=== PATIENT | female | born 1985 | race Two or more races ===

== ENCOUNTER 2016-06-12 18:15 | Emergency (ER) | payer OTHER ==
[2016-06-12 18:18] VITALS: BP 126/34; PULSE 97; TEMP 99.7; BMI 35.7
--- NOTE | 2016-06-12 18:49 | PDOC ---
History of Present Illness - General Chief Complaint: Back Pain Stated Complaint: LOWER BACK PAIN Time Seen by Provider: 06/12/16 18:30 History Source: Patient Exam Limitations: No Limitations - History of Present Illness Initial Comments: CHIEF COMPLAINT: 31 y/o overweight female with no significant PMH c/o low back pain today. HISTORY OF PRESENT ILLNESS: The patient states she was bending down trying to put some shoes on when she felt a pull in her left lower back. She states she' s had pain in that area and pain with movement ever since. She denies fall, trauma to back, saddle anesthesia, radiation of pain, numbness/tingling in LEs. The patient did not take anything for the pain. Vital signs on arrival are within normal limits. REVIEW OF SYSTEMS: GENERAL/CONSTITUTIONAL: fever/chills. No weakness. No weight change. HEAD, EYES, EARS, NOSE AND THROAT: No change in vision. No ear pain or discharge. No sore throat. CARDIOVASCULAR: No chest pain or shortness of breath. RESPIRATORY: No cough, wheezing, or hemoptysis. GASTROINTESTINAL: No abd pain, nausea, vomiting, diarrhea. GENITOURINARY: No dysuria, frequency, or change in urination. MUSCULOSKELETAL: No joint or muscle swelling or pain. No neck pain. +low back pain. SKIN: No rash or easy bruising. NEUROLOGIC: No headache, vertigo, loss of consciousness, or loss of sensation. PHYSICAL EXAM: GENERAL: The patient is awake, alert, and fully oriented, in no acute distress. She is overweight, ambulatory with pain. HEAD: Normal with no signs of trauma. ENT: Pupils equal, round and reactive to light, extraocular movements intact, sclera anicteric, conjunctiva clear. Neck supple. BACK: No midline lumbar spine TTP or step offs. TTP of left lumbar paravertebral muscles. Pain with flexion of lumbar spine. EXTREMITIES: Normal range of motion, no edema. Equal straight leg raise b/l. NEUROLOGICAL: Normal speech, normal gait. CN II-XII grossly intact. No saddle anesthesia. PSYCH: Normal mood, normal affect. SKIN: Warm, dry, normal turgor, no rashes or lesions noted. Past History - Past Medical History Allergies/Adverse Reactions: Allergies Allergy/AdvReac Type Severity Reaction Status Date / Time No Known Allergies Allergy Verified 06/12/16 18:18 Other medical history: NONE - Psycho/Social/Smoking Cessation Hx Suicidal Ideation: No Smoking History: Never smoked Hx Alcohol Use: No Drug/Substance Use Hx: No Substance Use Type: None *Physical Exam - Vital Signs Last Vital Signs Temp Pulse Resp BP Pulse Ox 99.7 F H 97 H 20 126/34 100 06/12/16 18:16 06/12/16 18:16 06/12/16 18:16 06/12/16 18:16 06/12/16 18:16 Medical Decision Making - Medical Decision Making A/P: 31 y/o female with low back strain. Plan is as follows: 1. hcg 2. IM Toradol The patient does not want to wait for the hcg. She states she has motrin at home. She will be discharged to home with instructions to take motrin every 6 hours for pain, apply heating pad to the affected area, avoid heavy lifting, and f/u with her PCP on Tuesday for possible PT referral. The patient verbalizes understanding of all instructions, has no further questions and is awaiting discharge. *DC/Admit/Observation/Transfer Diagnosis at time of Disposition: Low back strain Qualifiers: Encounter type: initial encounter Qualified Code(s): S39.012A - Strain of muscle, fascia and tendon of lower back, initial encounter - Discharge Dispostion Disposition: HOME Condition at time of disposition: Good - Referrals Referrals: Sivakumar Salinas MD [Primary Care Provider] - Call tomorrow - Patient Instructions Printed Discharge Instructions: DI for Low Back Pain, How To Perform RICE (Rest , Ice, Compress, Elevate) Additional Instructions: Discharge Instructions: -Take 600mg of Motrin every 6 hours for pain with food -Massage the affected area -Apply heating pad to the affected area -Stretch your back multiple times per day -No heavy lifting -Follow up with your doctor on Tuesday for possible physical therapy referral
== END 2016-06-12 19:23 | disposition home or self-care (01) ==
LOC: JERFT 18:15
DX: S39.012A Strain of muscle, fascia and tendon of lower back, initial encounter (principal); X50.0XXA Overexertion from strenuous movement or load, initial encounter; Y93.89 Activity, other specified; Y92.038 Other place in apartment as the place of occurrence of the external cause
CPT/HCPCS: 84703; 99281-25

== ENCOUNTER 2018-11-22 14:03 | Emergency (ER) | payer OTHER ==
--- NOTE | 2018-11-22 14:11 | PDOC ---
Rapid Medical Evaluation Time Seen by Provider: 11/22/18 14:09 Medical Evaluation: Allergies Allergy/AdvReac Type Severity Reaction Status Date / Time No Known Allergies Allergy Verified 06/12/16 18:18 11/22/18 14:09 HPI: Abdominal pain x 3 days + preg PE: No gross deficits ORDERS: US, B hcg ,labs Discharge Disposition - Diagnosis Threatened - Referrals - Patient Instructions - Post Discharge Activity
[2018-11-22 14:13] VITALS: BP 125/83; PULSE 109; TEMP 98; BMI 37.0
--- NOTE | 2018-11-22 15:20 | PDOC ---
*Physical Exam - Vital Signs Last Vital Signs Temp Pulse Resp BP Pulse Ox 98 F 109 H 16 125/83 100 11/22/18 14:10 11/22/18 14:10 11/22/18 14:10 11/22/18 14:10 11/22/18 14:10 ED Treatment Course - LABORATORY CBC & Chemistry Diagram: 11/22/18 15:30 11/22/18 15:30 Medical Decision Making - Medical Decision Making 11/22/18 17:02 33 yo F presenting with a complaint of vaginal bleeding US demonstrates IUP 16 weeks 1 day, HR 143 Pt seen by Midlevel Provider under my direct supervision Ancillary studies reviewed I agree with plan as outlined by Midlevel Provider 11/22/18 17:02 Clinical Impression: threatened AB, initial presentation 11/22/18 17:03 *DC/Admit/Observation/Transfer Diagnosis at time of Disposition: Threatened - Referrals - Patient Instructions - Post Discharge Activity
[2018-11-22 15:38] LABS: BASO % 0.4 % (0-2.0); EOS % 0.9 % (0-4.5); HEMATOCRIT 39.4 % (32.4-45.2); HEMOGLOBIN 13.1 GM/dL (10.7-15.3); LYMPH % 15.3 % (8-40); MCH 28.8 pg (25.7-33.7); MCHC 33.2 g/dl (32.0-36.0); MEAN CELL VOLUME 86.8 fl (80-96); MONO % 7.9 % (3.8-10.2); NEUT % 75.5 % (42.8-82.8); PLATELET COUNT 279 K/MM3 (134-434); RBC 4.54 M/mm3 (3.60-5.2); WHITE BLOOD COUNT 12.6 K/mm3 (4.0-10.0)
[2018-11-22 15:44] LABS: INR 0.98 (0.83-1.09); PROTHROMBIN TIME (PATIENT) 11.6 SEC (9.7-13.0)
[2018-11-22 16:10] LABS: ALBUMIN 3.2 g/dl (3.4-5.0); BILIRUBIN,TOTAL 0.2 mg/dL (0.2-1); BLOOD UREA NITROGEN 6.9 mg/dL (7-18); CALCIUM 9.2 mg/dL (8.5-10.1); CREATININE 0.5 mg/dL (0.55-1.3); POTASSIUM 3.6 mmol/L (3.5-5.1); TOT PROT 7.3 g/dl (6.4-8.2)
[2018-11-22 16:56] LABS: HCG,QUALITATIVE URINE Positive; URINE APPEARANCE CLEAR; URINE BILIRUBIN NEGATIVE (NEGATIVE); URINE COLOR YELLOW; URINE GLUCOSE (UA) NEGATIVE (NEGATIVE); URINE KETONE NEGATIVE (NEGATIVE); URINE LEUK ESTERASE NEGATIVE (NEGATIVE); URINE NITRITE NEGATIVE (NEGATIVE); URINE PROTEIN NEGATIVE (NEGATIVE); URINE UROBILINOGEN 0.2 mg/dL (0.2-1.0)
[2018-11-22] MEDS ORDERED: MAG HYDROX/AL HYDROX/SIMETH -MYLANTA- ORAL SUSPENSION PO ONE (17:18)
[2018-11-22] MEDS ORDERED: ONDANSETRON 4 MG/2 ML VIAL IVPUSH ONE (17:18)
--- NOTE | 2018-11-22 17:18 | PDOC ---
History of Present Illness - General Chief Complaint: Pain Stated Complaint: SIXTEEN WEEK VA/ABD PAIN Time Seen by Provider: 11/22/18 14:09 Past History - Past Medical History Allergies/Adverse Reactions: Allergies Allergy/AdvReac Type Severity Reaction Status Date / Time No Known Allergies Allergy Verified 06/12/16 18:18 Home Medications: Ambulatory Orders NK [No Known Home Medication] 11/22/18 COPD: No - Immunization History Immunization Up to Date: Yes - Suicide/Smoking/Psychosocial Hx Smoking History: Never smoked Hx Alcohol Use: No Drug/Substance Use Hx: No Substance Use Type: None *Physical Exam - Vital Signs Last Vital Signs Temp Pulse Resp BP Pulse Ox 98 F 109 H 16 125/83 100 11/22/18 14:10 11/22/18 14:10 11/22/18 14:10 11/22/18 14:10 11/22/18 14:10 ED Treatment Course - LABORATORY CBC & Chemistry Diagram: 11/22/18 15:30 11/22/18 15:30 - ADDITIONAL ORDERS Additional order review: Laboratory Results 11/22/18 11/22/18 11/22/18 16:40 15:30 15:30 PT with INR 11.60 INR 0.98 Sodium 135 L Potassium 3.6 Chloride 104 Carbon Dioxide 24 Anion Gap 6 L BUN 6.9 L Creatinine 0.5 L Est GFR (CKD-EPI)AfAm 147.38 Est GFR (CKD-EPI)NonAf 127.16 Random Glucose 85 Calcium 9.2 Total Bilirubin 0.2 AST 12 L ALT 31 Alkaline Phosphatase 73 Total Protein 7.3 Albumin 3.2 L Lipase 142 Urine Color Yellow Urine Appearance Clear Urine pH 6.0 Ur Specific [place] 1.021 Urine Protein Negative Urine Glucose (UA) Negative Urine Ketones Negative Urine Blood Negative Urine Nitrite Negative Urine Bilirubin Negative Urine Urobilinogen 0.2 Ur Leukocyte Esterase Negative Urine HCG, Qual Positive 11/22/18 15:30 RBC 4.54 MCV 86.8 MCHC 33.2 RDW 14.0 MPV 9.0 Neutrophils % 75.5 Lymphocytes % 15.3 Monocytes % 7.9 Eosinophils % 0.9 Basophils % 0.4 - RADIOLOGY Radiology Studies Ordered: Category Date Time Status ABDOMEN US -LIMITED [US] Stat Ultrasound 11/22/18 15:19 Completed *DC/Admit/Observation/Transfer Diagnosis at time of Disposition: Abdominal pain affecting , Fibroids - Discharge Dispostion Disposition: HOME Condition at time of disposition: Stable Decision to Admit order: No - Referrals Referrals: Renetta Lazo MD [Staff Physician] - - Patient Instructions Printed Discharge Instructions: DI for Abdominal Pain-Adult Additional Instructions: You were evaluated for your abdominal pain today. Your ultrasounds of your gallbladder were normal. Your baby had a heartbeat of 144 today. Your pain could possibly be from fibroids or possibly some reflux. He may take Tylenol thousand milligrams every 6 hours as needed for pain. He may take Pepcid twice a day to help with your upper abdominal pain. Please keep your follow-up with her OB for Tuesday. Return to the ER for any new or worsening symptoms. - Post Discharge Activity Forms/Work/School Notes: Back to Work
[2018-11-22] MEDS ORDERED: FAMOTIDINE 20 MG/50 ML IVPB 20 MG/50 ML MG IVPB ONE ×2 (17:19→17:27)
[2018-11-22] MEDS ORDERED: MAG HYDROX/AL HYDROX/SIMETH 30 ML UNIT-DOSE CUP ONE (17:27)
[2018-11-22] MEDS ORDERED: ONDANSETRON 4 MG/2 ML VIAL ONE (17:27)
--- NOTE | 2018-11-22 19:20 | EKG ---
Test Reason : Blood Pressure : / mmHG Vent. Rate : 097 BPM Atrial Rate : 097 BPM P-R Int : 138 ms QRS Dur : 090 ms QT Int : 350 ms P-R-T Axes : 045 006 028 degrees QTc Int : 444 ms NORMAL SINUS RHYTHM POSSIBLE LEFT ATRIAL ENLARGEMENT LEFT VENTRICULAR HYPERTROPHY ABNORMAL ECG NO PREVIOUS ECGS AVAILABLE Confirmed by ISABELL RODRIGUEZ MD ([id number]) on 11/22/2018 7:20:11 PM Referred By: Confirmed By:ISABELL RODRIGUEZ MD
== END 2018-11-22 19:00 | disposition home or self-care (01) ==
LOC: JER 14:03
PROC: 3E033GC Introduction of Other Therapeutic Substance into Peripheral Vein, Percutaneous Approach (ICD-10-PCS; principal; 2018-11-22)
DX: O26.892 Other specified pregnancy related conditions, second trimester (principal); Z3A.16 16 weeks gestation of pregnancy; D28.2 Benign neoplasm of uterine tubes and ligaments
CPT/HCPCS: 36415; 76705-TC; 76815-TC; 80053; 81003; 83690; 84703; 85025; 85610; 87086; 93005; 93010; 99282-25

== ENCOUNTER 2019-01-09 09:48 | Emergency (ER) | payer OTHER | END 2019-01-09 12:55 | disposition home or self-care (01) | LOC: JER 09:48 ==

== ENCOUNTER 2019-04-06 12:57 | Inpatient (IN) | payer OTHER ==
[2019-04-06] MEDS ORDERED: ELECTROLYTE-148 SOLN 500 ML IV SCH (13:00)
[2019-04-06] MEDS ORDERED: CITRIC ACID/SODIUM CITRATE 30 ML UNIT-DOSE CUP PO ONE ×2 (13:00→13:34)
[2019-04-06] MEDS ORDERED: ELECTROLYTE-148 SOLN 1,000 ML IV SCH ×2 (13:30→13:45)
[2019-04-06] MEDS ORDERED: ELECTROLYTE-148 SOLN 500 ML IV ONE (13:34)
[2019-04-06 13:39] LABS: BASO % 0.4 % (0-2.0); EOS % 1.3 % (0-4.5); HEMATOCRIT 37.1 % (32.4-45.2); HEMOGLOBIN 12.2 GM/dL (10.7-15.3); LYMPH % 18.2 % (8-40); MCH 27.6 pg (25.7-33.7); MCHC 32.9 g/dl (32.0-36.0); MEAN CELL VOLUME 83.8 fl (80-96); MEAN PLT VOLUME 9.1 fl (7.5-11.1); MONO % 8.7 % (3.8-10.2); NEUT % 71.4 % (42.8-82.8); PLATELET COUNT 292 K/MM3 (134-434); RBC 4.43 M/mm3 (3.60-5.2); RDW 16.1 % (11.6-15.6)
--- NOTE | 2019-04-06 13:41 | HP ---
Past Medical History - Admission Chief Complaint: PROM History of Present Illness: 34yo @ 36.0wks by LMP/SONO here with PPROM, prior C/S Pt presented to her OB appointment, noted LOF again. Exam in office revealed she was grossly ruptured, nitrazine positive. +LOF. No VB/ctx. 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: Alzheimer's, CVA, Dementia, Migraine, Multiple Sclerosis, Peripheral Neuropathy, Parkinson's, Seizure, Syncope, TIA, Vertigo, Other Cardiovascular: No: AFIB, Aneurysm, Aortic Insufficiency, Aortic Stenosis, CAD, CHF, Deep Vein Thrombosis, HTN, Hyperlipdemia, GA, Mitral Insufficiency, Mitral Stenosis, Murmur, Pulmonary Hypertension, Other Pulmonary: No: Asthma, Bronchitis, Cancer, COPD, O2 Dependent, Pneumonia, Previously Intubated, Pulmonary Embolus, Pulmonary Fibrosis, Sleep Apnea, Other Gastrointestinal: No: Ascites, Cancer, Constipation, Crohn's Disease, Diverticulitis, Diverticulosis, Esophageal Varices, Gastritis, GERD, GI Bleed, Hemorrhoids, Hiatal Hernia, Inflamatory Bowel Disease, Irritable Bowel Disease, Pancreatitis, Peptic Ulcer Disease, Ulcerative Colitis, Other Hepatobiliary: No: Cirrhosis, Cholelithiasis, Cholecystitis, Choledocholithiasis , Hepatitis A, Hepatitis B, Hepatitis C, Other Renal/: No: Renal Failure, Renal Inusuff, BPH, Cancer, Hematuria, Hemodialysis , Neurogenic Bladder, Renal Calculi, UTI, Other Reproductive: Yes: Fibroids ...: 3 ...Para: 1 ...Term: 1 ...Spon : 1 ...LMP: 07/28/18 ... Weeks Gestation by Dates: 36.0 ...EDC by Dates: 05/04/19 ...EDC by Sono: 05/04/19 Heme/Onc: Yes: Anemia Infectious Disease: No: AIDS, C-Diff, Herpes Zoster, HIV, MRSA, STD's, Tuberculosis, VREF, Other Psych: No: Addictions, Anxiety, Bipolar, Depression, Panic, Psychosis, Schizophrenia, Other - Past Surgical History Past Surgical History: Yes: Hx Myomectomy: No Hx Transabdominal Cerclage: No Additional Surgical History: Abdominoplasty - Smoking History Smoking history: Never smoked - Alcohol/Substance Use Hx Alcohol Use: No History of Substance Use: reports: None - Social History Usual Living Arrangement: Yes: With Significant Other Do you think of yourself as: Straight/Heterosexual ADL: Independent Home Medications - Allergies Allergies/Adverse Reactions: Allergies Allergy/AdvReac Type Severity Reaction Status Date / Time No Known Allergies Allergy Verified 04/06/19 13:29 - Home Medications Home Medications: Ambulatory Orders Vitamins (Sjr) - 1 tab PO DAILY 04/04/19 Physical Exam - Maternity - Abdominal Exam/OB Number of Fetuses: Single Presentation: Vertex Category: I Accelerations: Non-Uniform Decelerations: None - Vaginal Exam/OB Vaginal Bleediing: No Speculum Exam: Yes (pooling in the office) Dilatation (cm): 1 Effacement (%): 0 Amniotic Membrane Status: Ruptured Nitrazine Test: Positive Amniotic Fluid: Yes: Clear Presentation: Vertex/Position Station: -3 - Physical Exam Edema: No Imaging - Results Ultrasound: Report Reviewed Assessment/Plan 34yo @ 36.0wks by LMP/sono here for repeat C/S 2/2 PROM Admit to L&D NPO, IVFs Ancef SCDs Elizabeth Risk of procedure reviewed, including bleeding, infection, injury to bladder/ bowel/adnexa/vessels/nerves. All questions answered Consent signed. Josiah Lazo MD
[2019-04-06 13:43] VITALS: BMI 40.0
[2019-04-06] MEDS ORDERED: AMPICILLIN - 2 GM in SODIUM CHLORIDE 100 ML IVPB ONE (13:45)
[2019-04-06] MEDS ORDERED: AMPICILLIN SODIUM 2 GM VIAL ONE (13:46)
[2019-04-06 13:51] LABS: INR 0.99 (0.83-1.09); PROTHROMBIN TIME (PATIENT) 11.7 SEC (9.7-13.0)
[2019-04-06 13:54] LABS: ACTIVATED PTT 27.3 SECONDS (25.2-36.5)
[2019-04-06 14:05] LABS: RPR NONREACTIVE (NONREACTIVE)
[2019-04-06 14:12] LABS: BLOOD UREA NITROGEN 8.4 mg/dL (7-18); CREATININE 0.5 mg/dL (0.55-1.3)
[2019-04-06] MEDS ORDERED: morphine SULFATE/PF 0.5 MG/ML (2cc Syringe - QUVA) ONE (15:52)
[2019-04-06] MEDS ORDERED: PHENYLEPHRINE HCL 10 MG/1 ML SINGLE DOSE VIAL ONE (15:52)
[2019-04-06] MEDS ORDERED: OXYTOCIN 10 UNITS/ML VIAL ONE (15:52)
[2019-04-06] MEDS ORDERED: PROPOFOL 20 ML ONE (15:53)
[2019-04-06] MEDS ORDERED: KETOROLAC TROMETHAMINE 30 MG/1 ML VIAL ONE (17:06)
[2019-04-06] MEDS ORDERED: IBUPROFEN 800 MG/8 ML IJ IVPB PRN (17:30)
[2019-04-06] MEDS ORDERED: METHYLERGONOVINE MALEATE 0.2 MG/1 ML AMP IM PRN (17:30)
[2019-04-06] MEDS ORDERED: oxyCODONE HCL 5 MG TABLET PO PRN (17:30)
--- NOTE | 2019-04-06 17:30 | OP ---
Operative Note - Note: Operative Date: 04/06/19 Pre-Operative Diagnosis: 36 week , PPROM, prior C/S Operation: Repeat Low Transverse Findings: VMI, LOT, no nuchal, no meconium. Apgars 9/9. Weight pending. Fibroid uterus, numerous Left lateral intramural fibroids Tubes and ovaries normal bilaterally via palpation Surgeon: Renetta Lazo Catalyst Supervisor: Ramos Huff Anesthesia: Spinal Estimated Blood Loss (mls): 600 Drains, Volume Out (mls): 100 (clear urine) Operative Report Dictated: Yes
[2019-04-06] MEDS ORDERED: OXYTOCIN 20 UNITS in 0.9% NS 20 UNIT/1,000 ML INFUS.BAG IV ONE (17:38)
[2019-04-06] MEDS: OXYTOCIN 20 UNITS in 0.9% NS 20 UNIT/1,000 ML INFUS.BAG IV SCH (17:45)
[2019-04-06] MEDS ORDERED: AMPICILLIN - 1 GM in SODIUM CHLORIDE 100 ML IVPB SCH (17:46)
--- NOTE | 2019-04-06 18:34 | OP ---
DATE OF OPERATION: 04/06/2019 PREOPERATIVE DIAGNOSIS: 36-week , premature rupture of membranes, prior section, desires elective repeat. POSTOPERATIVE DIAGNOSIS: 36-week , premature rupture of membranes, prior section, desires elective repeat. PROCEDURE: Repeat low transverse section. ANESTHESIA: Spinal. SURGEON: Renetta Lazo MD CHAIR UPHOLSTERER: GURJIT Contreras INTRAVENOUS FLUIDS: Per anesthesia record. ESTIMATED BLOOD LOSS: 600. URINE OUTPUT: 100 mL of clear urine at the end of the procedure. FINDINGS: Viable male , LOT presentation. No nuchal. No meconium. Apgars 9, 9. Weight pending. Fibroid uterus. Numerous left lateral intramural fibroids. Palpably normal left and right fallopian tubes and ovaries. COMPLICATIONS: None. CONDITION: Stable to the PACU. NATURE OF THE PROCEDURE: After the appropriate consents were signed, the patient was taken to the operating room. Spinal anesthesia was administered. She was placed in supine position. The abdomen was prepped and draped in a normal sterile fashion. A sterile Elizabeth catheter had been inserted prior to entry into the operating room. Time-out was performed confirming correct patient and procedure. A Pfannenstiel incision was made, carried through to the underlying layer so the fascia was nicked in the midline. The fascia was then extended laterally with the Fischer scissors. Inferior aspect of the fascia was grasped with the Nasrin clamps, tented upwards, and the rectus muscles were dissected off bluntly and with the Fischer scissors. Attention was then paid to the superior aspect, which was taken down in a similar fashion. The rectus muscles were sharply in the midline with a scalpel. The peritoneum was then entered bluntly. Bladder blade was inserted. Uterus was notable for several mid sized uterine fibroids in the patient's left lateral anterior uterine surface. The vesicouterine reflection was grasped, tented upwards, nicked in the midline, and extended laterally with the Metzenbaum scissors. The bladder flap was then created digitally. The bladder blade was then reinserted. Uterus was incised in a low transverse fashion. Clear amniotic fluid was noted. The infant's head was delivered without difficulty as were the remaining shoulder and body. The cord was then clamped and cut. The was handed off to the awaiting pediatric staff. The placenta was then removed manually. The uterus was cleared of all clot and debris. The hysterotomy was closed in a single layer with a 1-0 Vicryl. The patient's left hysterotomy had to be reinforced for bleeding with a 1-0 Vicryl with good hemostasis. Due to the bulky nature of the uterine fibroids especially on the patient's left lateral uterine sidewall, difficult to exteriorize and visualize the patient's fallopian tube, but on palpation, both left and right fallopian tube and ovary appeared normal. Hysterotomy was then reinspected. Noted to be hemostatic. The muscles were closed with a 2-0 chromic. Fascia was closed with 0 Vicryl. Subcutaneous fat was closed a 3-0 plain. Skin was closed with 3-0 Biosyn. All sponge, lap, needle counts were correct x3. The patient did receive 2 g of Ancef at the start of the procedure. Prior to entry into the operating room, she did receive ampicillin given GBS status unknown and range of motion. She was taken from the operating room to the recovery area in stable condition. MD AJ HOLLIDAY/[id number]
[2019-04-07] MEDS ORDERED: LIDO 2%/EPI 1:200000 PRESRVFRE (20 ML SDVIAL) ONE (06:01)
[2019-04-07] MEDS: FERROUS SO4 325 MG TABLET (FP) PO SCH ×2 (08:15→18:59)
[2019-04-07 08:44] LABS: BASO % 0.4 % (0-2.0); EOS % 1.4 % (0-4.5); HEMATOCRIT 34.3 % (32.4-45.2); HEMOGLOBIN 11.4 GM/dL (10.7-15.3); MCH 27.8 pg (25.7-33.7); MCHC 33.2 g/dl (32.0-36.0); MEAN CELL VOLUME 83.8 fl (80-96); MONO % 8.9 % (3.8-10.2); NEUT % 78.3 % (42.8-82.8); PLATELET COUNT 269 K/MM3 (134-434); RBC 4.09 M/mm3 (3.60-5.2); WHITE BLOOD COUNT 11.6 K/mm3 (4.0-10.0)
[2019-04-07] MEDS: SIMETHICONE 80 MG TAB.CHEW (FP) PO PRN ×2 (09:18→19:05)
[2019-04-07] MEDS: PRENATAL VITAMINS W/ FOLIC ACID TABLET (FP) PO SCH (09:18)
[2019-04-07] MEDS: IBUPROFEN 600 MG TABLET (FP) PO PRN ×2 (09:19→19:05)
[2019-04-07] MEDS: ACETAMINOPHEN 325 MG TABLET (FP) PO PRN ×2 (09:20→19:05)
--- NOTE | 2019-04-07 11:01 | PN ---
Post Progress Note - Subjective Subjective: c/o pain at op site , scale 7/10 not voided since foote is taken out Post Day: 1 Type of Delivery: Repeat C/S Vital Signs: Vital Signs Temperature 98.5 F 04/07/19 06:23 Pulse Rate 99 H 04/07/19 06:23 Respiratory Rate 20 04/07/19 10:00 Blood Pressure 113/54 L 04/07/19 06:23 O2 Sat by Pulse Oximetry (%) 99 04/06/19 19:15 Breast Exam: Yes: Soft, Other (attempting BF, bottle feeding ). No: Engorged Uterus: Yes: Fundus Firm, Fundus below umbilicus, Non-tender Incision: Yes: Dressing dry and intact. No: Oozing, Other Abdomen/GI: Yes: Abdomen soft, Abdominal Distention (obese abdomen ), Tolerating PO (clear fluids ). No: Tender, Passing flatus Lochia: Yes: Rubra Lochia, amount: Moderate Extremities: Yes: Calves non-tender Perineum: Yes: Intact Activity: Ambulating - Labs Labs: CBC WBC 11.6 K/mm3 (4.0-10.0) H 04/07/19 08:15 RBC 4.09 M/mm3 (3.60-5.2) 04/07/19 08:15 Hgb 11.4 GM/dL (10.7-15.3) 04/07/19 08:15 Hct 34.3 % (32.4-45.2) 04/07/19 08:15 MCV 83.8 fl (80-96) 04/07/19 08:15 MCH 27.8 pg (25.7-33.7) 04/07/19 08:15 MCHC 33.2 g/dl (32.0-36.0) 04/07/19 08:15 RDW 16.0 % (11.6-15.6) H 04/07/19 08:15 Plt Count 269 K/MM3 (134-434) 04/07/19 08:15 MPV 9.0 fl (7.5-11.1) 04/07/19 08:15 Absolute Neuts (auto) 9.1 K/mm3 (1.5-8.0) H 04/07/19 08:15 Neutrophils % 78.3 % (42.8-82.8) 04/07/19 08:15 Lymphocytes % 11.0 % (8-40) D 04/07/19 08:15 Monocytes % 8.9 % (3.8-10.2) 04/07/19 08:15 Eosinophils % 1.4 % (0-4.5) 04/07/19 08:15 Basophils % 0.4 % (0-2.0) 04/07/19 08:15 Nucleated RBC % 0 % (0-0) 04/07/19 08:15 Problem List - Problems (1) Status post section routine follow-up Code(s): Z39.2 - ENCOUNTER FOR ROUTINE FOLLOW-UP; Z98.891 - HISTORY OF UTERINE SCAR FROM PREVIOUS SURGERY Assessment/Plan stable plan ct po care
[2019-04-07] MEDS ORDERED: BISACODYL 10 MG SUPP.RECT RC PRN (17:31)
[2019-04-07] MEDS: OXYTOCIN 20 UNITS in 0.9% NS 20 UNIT/1,000 ML INFUS.BAG IV SCH (19:00)
[2019-04-08] MEDS: FERROUS SO4 325 MG TABLET (FP) PO SCH ×2 (08:50→18:37)
[2019-04-08] MEDS: IBUPROFEN 600 MG TABLET (FP) PO PRN ×2 (08:50→18:37)
[2019-04-08] MEDS: ACETAMINOPHEN 325 MG TABLET (FP) PO PRN ×2 (08:50→18:37)
--- NOTE | 2019-04-08 09:03 | PN ---
Post Progress Note - Subjective Subjective: no complains , except pain scale 4-5/10 bm not done , gaseous discomfort passing flatus Post Day: 2 Type of Delivery: Repeat C/S Vital Signs: Vital Signs Temperature 98.0 F 04/07/19 22:00 Pulse Rate 89 04/07/19 22:00 Respiratory Rate 18 04/07/19 22:00 Blood Pressure 101/58 L 04/07/19 22:00 O2 Sat by Pulse Oximetry (%) 99 04/06/19 19:15 Breast Exam: Yes: Soft, Other (BF). No: Engorged Uterus: Yes: Fundus Firm, Fundus below umbilicus, Non-tender Incision: Yes: Sutures intact (steri strips in situ). No: Redness, Oozing Abdomen/GI: Yes: Abdomen soft, Passing flatus, Tolerating PO (diet ). No: Abdominal Distention, Tender Lochia: Yes: Rubra Lochia, amount: Small Extremities: Yes: Calves non-tender Perineum: Yes: Intact Activity: Ambulating - Labs Labs: CBC WBC 11.6 K/mm3 (4.0-10.0) H 04/07/19 08:15 RBC 4.09 M/mm3 (3.60-5.2) 04/07/19 08:15 Hgb 11.4 GM/dL (10.7-15.3) 04/07/19 08:15 Hct 34.3 % (32.4-45.2) 04/07/19 08:15 MCV 83.8 fl (80-96) 04/07/19 08:15 MCH 27.8 pg (25.7-33.7) 04/07/19 08:15 MCHC 33.2 g/dl (32.0-36.0) 04/07/19 08:15 RDW 16.0 % (11.6-15.6) H 04/07/19 08:15 Plt Count 269 K/MM3 (134-434) 04/07/19 08:15 MPV 9.0 fl (7.5-11.1) 04/07/19 08:15 Absolute Neuts (auto) 9.1 K/mm3 (1.5-8.0) H 04/07/19 08:15 Neutrophils % 78.3 % (42.8-82.8) 04/07/19 08:15 Lymphocytes % 11.0 % (8-40) D 04/07/19 08:15 Monocytes % 8.9 % (3.8-10.2) 04/07/19 08:15 Eosinophils % 1.4 % (0-4.5) 04/07/19 08:15 Basophils % 0.4 % (0-2.0) 04/07/19 08:15 Nucleated RBC % 0 % (0-0) 04/07/19 08:15 Problem List - Problems (1) Status post section routine follow-up Code(s): Z39.2 - ENCOUNTER FOR ROUTINE FOLLOW-UP; Z98.891 - HISTORY OF UTERINE SCAR FROM PREVIOUS SURGERY Assessment/Plan stable plan rectal suppository . pt requests for dischargr tomorrow
[2019-04-08] MEDS: PRENATAL VITAMINS W/ FOLIC ACID TABLET (FP) PO SCH (10:45)
[2019-04-09] MEDS: ACETAMINOPHEN 325 MG TABLET (FP) PO PRN (06:04)
[2019-04-09] MEDS: SIMETHICONE 80 MG TAB.CHEW (FP) PO PRN (06:04)
[2019-04-09] MEDS: IBUPROFEN 600 MG TABLET (FP) PO PRN (06:05)
--- NOTE | 2019-04-09 07:23 | SURG ---
Surgery Linen Tech Note Linen Tech: Ramos Huff PA-C (Suzy) Date of Service: 04/06/19 Diagnosis: 36 week , PPROM, prior C/S Procedure: Operation: Repeat Low Transverse I was present for the entirety of the operative procedure. For further detail, please refer to operative report. Visit type - Case Type Case Type: ED Admission - Emergency Emergency Visit: Yes ED Registration Date: 04/06/19 Care time: The patient presented to the Emergency Department on the above date and was hospitalized for further evaluation of their emergent condition. - New patient This patient is new to me today: Yes Date on this admission: 04/09/19 - Critical Care Critical Care patient: No
--- NOTE | 2019-04-09 08:00 | PN ---
Post Progress Note - Subjective Subjective: no complains , pain scale 3/10 voidung without difficulty Post Day: 3 Type of Delivery: Repeat C/S Vital Signs: Vital Signs Temperature 98.7 F 04/08/19 22:00 Pulse Rate 92 H 04/08/19 22:00 Respiratory Rate 18 04/08/19 22:00 Blood Pressure 113/69 04/08/19 22:00 O2 Sat by Pulse Oximetry (%) 99 04/06/19 19:15 Breast Exam: Yes: Soft, Other (bf). No: Engorged Uterus: Yes: Fundus Firm, Fundus below umbilicus Abdomen/GI: Yes: Abdomen soft, Passing flatus (bm done ), Tolerating PO (diet ) . No: Tender Lochia, amount: Moderate Extremities: Yes: Calves non-tender Perineum: Yes: Intact Activity: Ambulating - Labs Labs: CBC WBC 11.6 K/mm3 (4.0-10.0) H 04/07/19 08:15 RBC 4.09 M/mm3 (3.60-5.2) 04/07/19 08:15 Hgb 11.4 GM/dL (10.7-15.3) 04/07/19 08:15 Hct 34.3 % (32.4-45.2) 04/07/19 08:15 MCV 83.8 fl (80-96) 04/07/19 08:15 MCH 27.8 pg (25.7-33.7) 04/07/19 08:15 MCHC 33.2 g/dl (32.0-36.0) 04/07/19 08:15 RDW 16.0 % (11.6-15.6) H 04/07/19 08:15 Plt Count 269 K/MM3 (134-434) 04/07/19 08:15 MPV 9.0 fl (7.5-11.1) 04/07/19 08:15 Absolute Neuts (auto) 9.1 K/mm3 (1.5-8.0) H 04/07/19 08:15 Neutrophils % 78.3 % (42.8-82.8) 04/07/19 08:15 Lymphocytes % 11.0 % (8-40) D 04/07/19 08:15 Monocytes % 8.9 % (3.8-10.2) 04/07/19 08:15 Eosinophils % 1.4 % (0-4.5) 04/07/19 08:15 Basophils % 0.4 % (0-2.0) 04/07/19 08:15 Nucleated RBC % 0 % (0-0) 04/07/19 08:15 Problem List - Problems (1) Status post section routine follow-up Code(s): Z39.2 - ENCOUNTER FOR ROUTINE FOLLOW-UP; Z98.891 - HISTORY OF UTERINE SCAR FROM PREVIOUS SURGERY Assessment/Plan stable. po instructions given
[2019-04-09] MEDS: FERROUS SO4 325 MG TABLET (FP) PO SCH (08:19)
[2019-04-09 08:33] LABS: BASO % 0.5 % (0-2.0); EOS % 3.7 % (0-4.5); HEMATOCRIT 34.3 % (32.4-45.2); HEMOGLOBIN 11.2 GM/dL (10.7-15.3); MCH 27.6 pg (25.7-33.7); MCHC 32.5 g/dl (32.0-36.0); MEAN CELL VOLUME 84.9 fl (80-96); MEAN PLT VOLUME 9.2 fl (7.5-11.1); MONO % 9.2 % (3.8-10.2); NEUT % 71.6 % (42.8-82.8); PLATELET COUNT 280 K/MM3 (134-434); RBC 4.04 M/mm3 (3.60-5.2); RDW 16.2 % (11.6-15.6); WHITE BLOOD COUNT 10.2 K/mm3 (4.0-10.0)
[2019-04-09 08:49] VITALS: BP 112/70; PULSE 74; TEMP 98.1
[2019-04-09] MEDS: PRENATAL VITAMINS W/ FOLIC ACID TABLET (FP) PO SCH (09:18)
--- NOTE | 2019-04-17 02:14 | DS ---
Physical Examination Vital Signs: Vital Signs Temperature 98.1 F 04/09/19 08:48 Pulse Rate 74 04/09/19 08:48 Respiratory Rate 18 04/09/19 08:48 Blood Pressure 112/70 04/09/19 08:48 O2 Sat by Pulse Oximetry (%) 99 04/06/19 19:15 Constitutional: Yes: Well Nourished, No Distress, Calm Eyes: Yes: WNL, Conjunctiva Clear, EOM Intact HENT: Yes: WNL, Atraumatic, Normocephalic Neck: Yes: WNL, Supple, Trachea Midline Cardiovascular: Yes: WNL, Regular Rate and Rhythm Respiratory: Yes: WNL, Regular, CTA Bilaterally Gastrointestinal: Yes: WNL, Normal Bowel Sounds Musculoskeletal: Yes: WNL Extremities: Yes: WNL Edema: No Integumentary: Yes: WNL Neurological: Yes: WNL, Alert, Oriented ...Motor Strength: WNL Psychiatric: Yes: WNL Labs: CBC, BMP 04/09/19 07:05 04/06/19 13:21 Discharge Summary Problems reviewed: Yes Reason For Visit: REPEAT Procedures: Principal: Repeat Hospital Course: Patient presented to the office, noted to have LOF. Sent into the hospital from the office for repeat C/S. She had an uncomplicated RLTCS She met all postoperative milestones She was discharged home in stable condition Condition: Stable - Instructions Diet, Activity, Other Instructions: Discharge Instructions * Out of Bed * * Regular Diet * Anali Care * Avoid sex for 6 weeks * rtc 1 week If you experience excessive bleeding or fever over 101 degrees, call doctor, the clinic or go to the Emergency Room. Referrals: Renetta Lazo MD [Staff Physician] - Disposition: HOME - Home Medications Comprehensive Discharge Medication List: Ambulatory Orders Vitamins (Sjr) - 1 tab PO DAILY 04/04/19 Acetaminophen [Tylenol .Regular Strength -] 500 mg PO Q4H PRN #30 tablet Ibuprofen [Motrin -] 600 mg PO Q4H PRN #30 tablet 04/08/19 Vitamins (Sjr) - 1 tab PO DAILY #30 tablet 04/08/19
--- NOTE | 2019-04-17 15:15 | PATH ---
Surgical Pathology Report Patient Name: FLAVIO QURESHI Med. Rec. #: [id number] /Age/Gender: 1985 (Age: 34) / F Account: [id number] Location: [facility] OBS/HUNTER GUIDE Taken: 04/06/2019 Received: 04/09/2019 Reported: 04/17/2019 Physicians: Renetta Lazo Specimen(s) Received PLACENTA Clinical History , 36 weeks SROM, previous SPAB x1, x1 2009 History of fibroids, migraines Final Diagnosis PLACENTA, SECTION: 406 G THIRD TRIMESTER PLACENTA WITH TRIVASCULAR UMBILICAL CORD AND UNREMARKABLE PLACENTAL MEMBRANES. Electronically Signed Lianet Tomlin M.D. Gross Description The specimen is received fresh labeled placenta and is a 406 gram, 15.5 x 15.0 x 2.7 cm. placenta with attached membranes and umbilical cord. The attached membranes are jeff, translucent with focal opacities and insert marginally. The umbilical cord measures 35 cm. in length and averages 1.1 cm. in diameter. The cord inserts eccentrically, 4.5 cm. to the nearest margin. No true knots or strictures are identified. Cut surface of the umbilical cord reveals 3 vessels. The surface is moore-blue with minimal fibrin deposition and appropriate caliber vessels. The maternal surface is red-brown with focal defects. Sectioning reveals red-brown, spongy parenchyma. No lesions are identified. [employer] [employer] sections are submitted in three cassettes as follows: 1- membrane rolls and umbilical cord; 2-3- full thickness sections of placenta. 04/13/2019 [facility]04/13/2019
== END 2019-04-09 12:55 | disposition home or self-care (01) | DRG 540 ==
LOC: JLDR 12:57 → J3W 20:42
PROVIDERS: ADMIT Obstetrics & Gynecology; ATTEND Obstetrics & Gynecology
PROC: 10D00Z1 Extraction of Products of Conception, Low, Open Approach (ICD-10-PCS; principal; 2019-04-06)
DX: O42.913 Preterm premature rupture of membranes, unspecified as to length of time between rupture and onset of labor, third trimester (principal); Z3A.36 36 weeks gestation of pregnancy; Z37.0 Single live birth
CPT/HCPCS: 36415; 80048; 85025; 85610; 85730; 86593; 86850; 86900; 86901; 87389; 88307-TC